=== PATIENT | male | born 1960 | race Caucasian/White ===

== ENCOUNTER 2016-10-26 06:49 | Day surgery (SDC) ==
[2016-10-26] MEDS ORDERED: LIDOCAINE 1% 20 ML MDV ID ONE (07:10)
[2016-10-26] MEDS ORDERED: LIDOCAINE 1% 20 ML MDV ONE (07:10)
[2016-10-26] MEDS ORDERED: VERSED ONE (09:00)
[2016-10-26] MEDS ORDERED: DIPRIVAN 20 ML VIAL IVP ONE (09:00)
[2016-10-26 09:50] VITALS: BP 116/80; TEMP 98.3
--- NOTE | 2016-10-26 14:03 | OP ---
PROCEDURE: EGD (ESOPHAGOGASTRODUODENOSCOPY) WITH BIOPSY. ENDOSCOPIST: Steffen SETHI M.D. INDICATION: GASTROESOPHAGEAL REFLUX DISEASE. INSTRUMENT: GIFH-190. MEDICATION: PER ANESTHESIA. PROCEDURE: The patient was positioned for endoscopy. The oropharynx was sprayed with Cetacaine spray and the endoscope was advanced through the bite block into the esophagus and from there advanced to the duodenum. The duodenum was normal. The pylorus was patent. The antrum was normal. Biopsies for Helicobacter was obtained. Retroflex exam does reveal some small fundic gland polyps. The scope was retroflexed and withdrawn back in the esophagus. The Z-line was 40 cm from the incisors. Biopsies were obtained at the GE junction. The remaining evaluation was normal. The patient tolerated the procedure without immediate complication. PLAN: 1. Review his pathology. 2. Continue current medications. CC: DR. INDIGO MORENO
== END 2016-10-26 10:05 | disposition home or self-care (01) ==
LOC: SURG 06:49
PROVIDERS: ATTEND Internal Medicine Gastroenterology
DX: K21.9 Gastro-esophageal reflux disease without esophagitis (principal); D13.1 Benign neoplasm of stomach; B96.81 Helicobacter pylori [H. pylori] as the cause of diseases classified elsewhere
CPT/HCPCS: 87339

== ENCOUNTER 2018-10-24 06:46 | Day surgery (SDC) ==
[2018-10-24 07:10] VITALS: TEMP 97.6
[2018-10-24] MEDS ORDERED: LIDOCAINE 1% 20 ML MDV ID ONE (07:15)
[2018-10-24] MEDS ORDERED: DIPRIVAN 20 ML VIAL IVP ONE (07:30)
[2018-10-24] MEDS ORDERED: VERSED ONE (07:30)
[2018-10-24 15:27] VITALS: BP 112/56
--- NOTE | 2018-10-25 07:59 | OP ---
PROCEDURE: COLONOSCOPY TO THE CECUM WITH SNARE POLYPECTOMY. ENDOSCOPIST: Steffen SETHI M.D. INDICATION: SCREENING. INSTRUMENT: FH-190. MEDICATION: PER ANESTHESIA. PROCEDURE: The patient was positioned for colonoscopy. The digital rectal exam was negative. The colonoscope was inserted through the anus and advanced to the cecum. The cecum was identified using the ileocecal valve and the appendiceal orifice as landmarks. The scope was slowly withdrawn through an adequately prepped colon. [place] Bowel prep score equals 9. Polyp removed at the hepatic flexure using snare cautery. Second polyp in the rectum removed snare cautery. No other abnormalities were noted. Extensive diverticular disease of the left colon. Retroflex exam was normal. Withdraw time 13 minutes and 10 seconds. PLAN: 1. Review pathology with anticipated repeat exam in 3-5 years. CC: Dr. Jhonathan MORENO
== END 2018-10-24 09:00 | disposition home or self-care (01) ==
LOC: SURG 06:46
PROVIDERS: ATTEND Internal Medicine Gastroenterology
DX: Z12.11 Encounter for screening for malignant neoplasm of colon (principal); K63.5 Polyp of colon; D12.6 Benign neoplasm of colon, unspecified